=== PATIENT | male | born 1960 | race Caucasian/White ===

== ENCOUNTER → 2016-11-30 | Outpatient (CLI) | payer BC ==
[2016-11-30 16:48] VITALS: BP 162/100
--- NOTE | 2016-11-30 16:49 | Urgent Care T Sheet Gen (E) ---
Intake General Temperature (Fahrenheit): 97.9 Pulse: 83 Blood Pressure Systolic: 162 Blood Pressure Diastolic: 100 Respirations: 18 SPO2: 99 Chief Complaint: UC Laceration Description of Symptoms He was at work when he cut his right index finger on a hook. It bled some. He did not want to go to the hospital. His tetanus is up to date per the pt. He can move and bend the finger. bleeding controlled when he arrived. Source: Patient History of Present Illness Onset & Duration: Hours Recent Trauma: Yes (cut finger today) Allergies: Coded Allergies: No Known Drug Allergies (Unverified , 11/30/16) Additional Comment on lisinopril and lipitor Respiratory Constitutional Symptoms: No syptoms reported EENTM: No symptoms reported Respiratory: No symptoms reported Cardiovascular: No symptoms reported Skin: Other (laceration right index finger palm side) All Other Systems Reviewed Remaining Systems: All other systems reviewed with negative findings Past Hnirtus-Qwsoss-Hyxile Hx Patient's Social History Alcohol Use: Denies Use Recreational Drug Use: Denies Use Surgeries/Hospitalizations Hospitalization/Surgery Hx: acl Respiratory Respiratory History: None Cardiovascular Cardiovascular History: Hypertension Neuro/Muscular Neuro/Muscular History: None Gastrointestinal GI/Endocrine History: None Physical Exam Physical Exam General Appearance: WD/WN No apparent distress Eyes, Ears, Nose, Throat Ex: PERRL/EOMI Respiratory Exam: Lungs clear Normal breath sounds No respiratory distress Cardiovascular Exam: Regular rate, rhythm Skin Exam: Other (laceration V shaped on the palm side of the right index finger- flap intact, minimal bleeding seen- he can bend and move finger ok. good pulse. no foreign object seen) Procedures/Interventions Laceration Repair : Location Modifier: Right Wound Location: Finger (index) Type: Laceration Wound Appearance: Bleeding, Unapproximated (v shaped laceration- flap) Laceration Depth: Subcutaneous Laceration Explored: Clean, No foreign body removed Skin Prep Used: Betadine Anesthesia: 1% Lidocaine Volume of Anesthetic (mls): 5 Wound Debridement: Moderate Suture: Ethlion Suture Size: 4-0 Number of Sutures: 10 Layer Closurer: 1 Sterile Dressing Applied: Yes Progress pt had a v shaped flap like laceration 1.5 cm x 1.5 cm not bleeding. no debri- pt tolerates stitches well, tetanus up to date. dressing applied Departure Urgent Care Impression Chief Complaint: UC Laceration Impression: Primary Impression: Laceration of finger Qualified Code: S61.219A - Laceration without foreign body of unspecified finger without damage to nail, initial encounter Departure Disposition: 01 HOME OR SELF-CARE Condition: Stable Referrals: ASHA NAVARRO MD (PCP) Additional Instructions: Long talk with him Monitor for signs and symptoms of infection suture removal 7-10 days - a week from wednesday Tylenol for pain or fever Keep dry- keep covered, dont get wet He agrees to plan of care monitor for finger movement and if any changes call PCP f/u PCP End of report . WILLIAN BAINS APRN () Nov 30, 2016 16:48
--- NOTE | 2016-12-01 09:07 | Progress Note (E) ---
Progress Note Called to check on pt. He is doing well. finger doing well no problems reported. Reminded him suture removal a week from Wednesday. He knows to call for any issues. Addendum to previous note- once finger was sutured, wound well approximated and no bleeding, pt tolerated well, dressing applied and instructions for wound care given. BP was elevated likely due to situation but he will have BP check with PCP. Akua Acharya APRN Dec 01, 2016 09:07
== END ==
LOC: MHUC 15:24
PROVIDERS: ATTEND Nurse Practitioner
DX: S61.210A Laceration without foreign body of right index finger without damage to nail, initial encounter (principal); W45.8XXA Other foreign body or object entering through skin, initial encounter; Y99.0 Civilian activity done for income or pay

== ENCOUNTER → 2016-12-09 | Outpatient (CLI) | payer BC ==
[2016-12-09 11:44] VITALS: BP 140/84
--- NOTE | 2016-12-09 11:44 | Urgent Care T Sheet Gen (E) ---
Intake General Temperature (Fahrenheit): 98.0 Pulse: 62 Blood Pressure Systolic: 140 Blood Pressure Diastolic: 84 Respirations: 20 SPO2: 99 Description of Symptoms Patient presents for suture removal. Had 10 sutures placed in the palmar R index finger approx 10 days ago. Patient states it is doing well. No redness or drainage to the area. Has kept it covered. History of Present Illness Allergies: Coded Allergies: No Known Drug Allergies (Unverified , 11/30/16) Respiratory Constitutional Symptoms: No syptoms reported EENTM: No symptoms reported Respiratory: No symptoms reported Cardiovascular: No symptoms reported Skin: Other (laceration) All Other Systems Reviewed Remaining Systems: All other systems reviewed with negative findings Past Qxvzphm-Aaypma-Etbzhw Hx Patient's Social History Alcohol Use: Denies Use Surgeries/Hospitalizations Hospitalization/Surgery Hx: acl Respiratory Respiratory History: None Cardiovascular Cardiovascular History: Hypertension Neuro/Muscular Neuro/Muscular History: None Gastrointestinal GI/Endocrine History: None Physical Exam Physical Exam General Appearance: WD/WN No apparent distress Skin Exam: Other (examination of the R palmar index finger shows a healing laceration. no redness.) Procedures/Interventions Suture/Wound Check : Suture/Wound Check: Sutures removed/provider Progress 10 sutures were removed without issue. Patient tolerated the procedure. Coban was then used to cover the area. Departure Urgent Care Impression Impression: Primary Impression: Visit for suture removal Departure Disposition: HOME OR SELF-CARE Condition: Stable Referrals: ASHA NAVARRO MD (PCP) Additional Instructions: Suture were removed without issue. The proximal aspect of the laceration was tacked down however not quite as well as the distal aspect. With the nature of his work, I instructed him to cover with Coban for several more days. I doubt the area will break open however the Coban will just remind him to be cautious. Return as needed Patient understands DC instructions. All questions were answered. End of report . MARCE ZHAO Dec 09, 2016 11:44
== END ==
LOC: MHUC 11:09
PROVIDERS: ATTEND Physician Assistant
DX: Z48.02 Encounter for removal of sutures (principal)